=== PATIENT | female | born 1995 | race Caucasian/White ===

== ENCOUNTER 2022-09-30 15:38 | Emergency (ER) | payer SELFPAY ==
[~2022-09-30] VITALS: Ht 175.3 cm; Wt 68.0 kg
[2022-09-30 15:49] VITALS: BP 108/69; TEMP 97.7; O2SAT 100
[2022-09-30 17:21] VITALS: PULSE 102; RESP 16
== END 2022-09-30 17:56 | disposition left against medical advice (07) ==
LOC: ER 15:38
DX: R42 Dizziness and giddiness (principal); Z53.21 Procedure and treatment not carried out due to patient leaving prior to being seen by health care provider
CPT/HCPCS: 99281; 99283